=== PATIENT | male | born 1975 | race African-American/Black ===

== ENCOUNTER 2017-04-02 11:45 | Emergency (ER) | payer BC ==
[~2017-04-02] VITALS: Ht 182.9 cm; Wt 85.7 kg
[2017-04-02 13:56] VITALS: BP 120/69
[2017-04-02] MEDS ORDERED: KETOROLAC TROMETH 60MG/2ML VIAL IM ONE (14:15)
== END 2017-04-02 14:57 | disposition home or self-care (01) ==
LOC: ER 11:45
DX: S29.012A Strain of muscle and tendon of back wall of thorax, initial encounter (principal); X50.0XXA Overexertion from strenuous movement or load, initial encounter; Y93.89 Activity, other specified; Y99.8 Other external cause status; Y92.89 Other specified places as the place of occurrence of the external cause
CPT/HCPCS: 72070; 96372; 99284; J1885

== ENCOUNTER 2018-08-31 09:59 | Emergency (ER) | payer BC ==
[~2018-08-31] VITALS: Ht 182.9 cm; Wt 81.6 kg
[2018-08-31 11:09] VITALS: BP 122/74
== END 2018-08-31 11:15 | disposition home or self-care (01) ==
LOC: ER 10:02
DX: G89.29 Other chronic pain (principal); M54.5 Low back pain